=== PATIENT | female | born 1985 | race Caucasian/White ===

== ENCOUNTER 2020-10-10 11:11 | Emergency (ER) | payer SELFPAY ==
[2020-10-10] MEDS ORDERED: ONDANSETRON 4 MG/2 ML VIAL ONE (13:01)
[2020-10-10] MEDS ORDERED: MORPHINE 4 MG/ML SYR ONE (13:01)
[2020-10-10] MEDS ORDERED: NA CHLORIDE 0.9% 1,000 ML ONE (13:01)
[2020-10-10 13:05] LABS: Absolute Lymphocytes (CBC) 3.2 K/uL (0.7-4.9); Basophils % 1.4 % (0-1.3); Hematocrit 40.6 % (36.0-45.0); Lymphocytes % 22.7 % (15.3-44.8); MPV 9.2 fL (7.6-11.3); RBC Red Blood Cell Count 4.57 M/uL (3.86-4.86)
[2020-10-10 13:15] LABS: Urine Amorphous Sediment 2+ /HPF (NONE SEEN); Urine Bacteria 20-50 /HPF (<20); Urine RBC <5 /HPF (NONE SEEN)
[2020-10-10 13:16] LABS: Urine Blood NEGATIVE (NEG); Urine Glucose NEGATIVE (NEG); Urine Protein NEGATIVE (NEG); Urine pH 7.5 (5.0-7.0)
--- NOTE | 2020-10-10 13:20 | RAD REPORT ---
EXAM DESCRIPTION: CT - Stone Protocol - 10/10/2020 1:05 pm CLINICAL HISTORY: FLANK PAIN, right-sided, with a history of kidney stones COMPARISON: No comparisons TECHNIQUE: Axial 3 mm thick images were obtained without oral or IV contrast. The [id number]-vilr span s the entirety of the system including uppermost abdomen and lung bases. All CT scans are performed using dose optimization technique as appropriate and may include automated exposure control or mA/KV adjustment according to patient size. FINDINGS: No hydronephrosis is present and no obstructing ureteral calculi. No nonobstructing calcul i identified. No suspicious renal masses. Isodense masses and pyelonephritis are not excluded on a st one protocol CT scan. No significant adrenal finding. Urinary bladder is contracted limiting assessme nt. No bladder calculi seen. Uterus and ovaries show no suspicious findings. Imaged portions of the liver, spleen and pancreas show no suspicious findings on non-contrast imaging . Cholecystectomy clips are present. No biliary tree dilatation. No suspicious bowel findings. Appendix is normal. No mass or bulky lymphadenopathy. That extends into left inguinal canal region. No free air, free flu id or inflammatory stranding. No significant bony abnormality. IMPRESSION: No hydronephrosis, obstructing calculus or acute finding identifiable. Isodense masses and pyelonephritis are not excluded on stone protocol technique. No acute GI or PACU NURSE process seen.
[2020-10-10 13:22] LABS: ALT/SGPT 24 U/L (12-78); AST/SGOT 17 U/L (15-37); Albumin 3.3 g/dL (3.4-5.0); Alkaline Phosphatase 107 U/L (45-117); BUN Blood Urea Nitrogen 9 mg/dL (7-18); Bicarbonate 29 mmol/L (21-32); Bilirubin Direct < 0.1 mg/dL (0-0.2); Bilirubin Total 0.2 mg/dL (0.2-1.0); Glucose Level 71 mg/dL (74-106); Lipase 80 U/L (73-393); Potassium 4.2 mmol/L (3.5-5.1); Protein, Total 7.7 g/dL (6.4-8.2); Sodium Level 144 mmol/L (136-145)
[2020-10-10] MEDS ORDERED: CEFTRIAXONE/SWI 1gm 1 GM/10 ML SYR ONE (14:18)
[2020-10-10] MEDS ORDERED: KETOROLAC 30 MG/ML INJ ONE (14:18)
--- NOTE | 2020-10-10 14:21 | ER ---
Nurse's Notes [facility] Name: Queenie Benton Age: 35 yrs Sex: Female : 1985 Arrival Date: 10/10/2020 Time: 11:14 Bed 15 Private MD: Diagnosis: Urinary tract infection, site not specified Presentation: 10/10 11:26 Chief complaint: Patient states: right flank pain since yesterday , hx of kidney iw stones. Coronavirus screen: At this time, the client does not indicate any symptoms associated with coronavirus-19. Ebola Screen: Patient negative for fever greater than or equal to 101.5 degrees Fahrenheit, and additional compatible Ebola Virus Disease symptoms Patient denies exposure to infectious person. Patient denies travel to an Ebola-affected area in the 21 days before illness onset. No symptoms or risks identified at this time. Initial Sepsis Screen: Does the patient meet any 2 criteria? No. Patient's initial sepsis screen is negative. Does the patient have a suspected source of infection? No. Patient's initial sepsis screen is negative. Risk Assessment: Do you want to hurt yourself or someone else? Patient reports no desire to harm self or others. Onset of symptoms was October 09, 2020. 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 - Social history:: Smoking status: Patient reports the use of cigarette tobacco products, smokes one-half pack cigarettes per day. Screenin:30 Abuse screen: Denies threats or abuse. Denies injuries from another. Nutritional zb screening: No deficits noted. Tuberculosis screening: No symptoms or risk factors identified. Fall Risk None identified. Assessment: 13:30 General: Appears in no apparent distress. uncomfortable, Behavior is calm, cooperative, zb appropriate for age. Pain: Complains of pain in right flank, right lower quadrant and right femoral area Pain radiates to low back area Pain currently is 8 out of 10 on a pain scale. Quality of pain is described as burning, aching, throbbing, Pain began 2-3 days ago. Is continuous, intermittent, Aggravated by repositioning. Neuro: Level of Consciousness is awake, alert, obeys commands, Oriented to person, place, time, situation. Cardiovascular: Capillary refill < 3 seconds Patient's skin is warm and dry. Respiratory: Airway is patent Respiratory effort is even, unlabored, Respiratory pattern is regular, symmetrical. GI: Abdomen is flat. : Urine is clear, Reports burning with urination, urinary frequency. Derm: Skin is intact, is healthy with good turgor, Skin is dry, Skin is normal, Skin temperature is warm. Musculoskeletal: Range of motion: intact in all extremities. 13:36 General: Appears in no apparent distress. zb 14:42 Reassessment: Patient appears in no apparent distress at this time. Patient and/or zb family updated on plan of care and expected duration. Pain level reassessed. Patient is alert, oriented x 3, equal unlabored respirations, skin warm/dry/pink. d/c instructions given. up ad papo. gait steady and even . Vital Signs: 11:26 BP 115 / 81; Pulse 91; Resp 16 S; Temp 98.1; Pulse Ox 98% on R/A; Weight 90.72 kg; iw Height 5 ft. 2 in. (157.48 cm); Pain 7/10; 12:30 BP 101 / 72; Pulse 79; Resp 15; Pulse Ox 98% on R/A; zb 13:34 BP 102 / 72; Pulse 75; Resp 16; Pulse Ox 97% on R/A; zb 14:42 BP 104 / 70; Pulse 80; Resp 16; Pulse Ox 98% on R/A; zb 11:26 Body Mass Index 36.58 (90.72 kg, 157.48 cm) iw ED Course: 11:14 Patient arrived in ED. am2 11:19 Ritika Franco, DANIELLE is Primary Nurse. iw 11:27 Triage completed. iw 11:28 Arm band placed on. iw 11:52 Catarino Paulino NP is PHCP. pm1 11:52 Gilmar Crow MD is Attending Physician. pm1 12:13 Radiology exam delayed due to test not completed at this time. mw3 12:42 Radiology exam delayed due to test not completed at this time. mw3 12:55 Inserted saline lock: 20 gauge in right antecubital area, using aseptic technique. dh4 Blood collected. 13:00 Urine --Ancillary (enter results) Sent. zb 13:00 Urine Dipstick--Ancillary (enter results) Sent. zb 14:41 Patient has correct armband on for positive identification. Placed in gown. Bed in low zb position. Call light in reach. Side rails up X 1. Pulse ox on. NIBP on. 14:41 No provider procedures requiring assistance completed. IV discontinued, intact, zb bleeding controlled, No redness/swelling at site. Pressure dressing applied. Administered Medications: 12:59 Drug: NS 0.9% 1000 ml Route: IV; Rate: 1000 ml; Site: right antecubital; zb 14:40 Follow up: Response: No adverse reaction; IV Status: Completed infusion; IV Intake: zb 1000ml 12:59 Drug: morphine 4 mg Route: IVP; Site: right antecubital; zb 14:40 Follow up: Response: No adverse reaction; RASS: Alert and Calm (0) zb 12:59 Drug: Zofran (Ondansetron) 4 mg Route: IVP; Site: right antecubital; zb 14:40 Follow up: Response: No adverse reaction zb 14:20 Drug: TORadol - Ketorolac 15 mg Route: IVP; Site: right antecubital; zb 14:39 Follow up: Response: No adverse reaction; Marked relief of symptoms zb 14:21 Drug: Rocephin 1 grams Route: IV; Rate: calculated rate; Site: right antecubital; zb 14:39 Follow up: Response: No adverse reaction; IV Status: Completed infusion; IV Intake: 20mlzb 14:39 Drug: Cipro 500 mg Route: PO; zb 14:39 Follow up: Response: No adverse reaction; Medication administered at discharge. zb Intake: 14:39 IV: 20ml; Total: 20ml. zb 14:40 IV: 1000ml; Total: 1020ml. zb Outcome: 14:20 Discharge ordered by . pm1 14:41 Discharged to home ambulatory. zb 14:41 Condition: stable 14:41 Discharge instructions given to patient, Instructed on discharge instructions, follow up and referral plans. medication usage, Demonstrated understanding of instructions, follow-up care, medications, Prescriptions given X 2. 14:43 Patient left the ED. carlos Signatures: Ritika Franco RN Catarino King NP ELECTRONIC ENGINEERING DRAFTSPERSON pm1 Park Santiago am2 Ange Mejia mw3 Jun Scott dh4 Jonna Ash RN RN zb Corrections: (The following items were deleted from the chart) : 13:30 : carlos gonzalez 14: 13:30 EENT: No signs and/or symptoms were reported regarding the EENT system. carlos gonzalez
--- NOTE | 2020-10-10 14:21 | EDPHYS ---
Physician Documentation [facility] Name: Queenie Benton Age: 35 yrs Sex: Female : 1985 Arrival Date: 10/10/2020 Time: 11:14 Bed 15 Private MD: JOSTIN Physician Gilmar Crow HPI: 10/10 12:09 This 35 yrs old Female presents to ER via Ambulatory with complaints of Right pm1 Flank Pain. 12:09 The patient complains of pain in the right low back. The pain radiates to the right pm1 groin. Onset: The symptoms/episode began/occurred yesterday. Modifying factors: The symptoms are alleviated by nothing. the symptoms are aggravated by nothing. Associated signs and symptoms: Pertinent positives: nausea, burning with urination , Pertinent negatives: diarrhea, fever, vomiting. Severity of pain: in the emergency department the pain is actually worse. The patient has experienced a previous episode, many years ago, and the symptoms today are exactly the same, to prior kidney stone. The patient has not recently seen a physician. 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 - Social history:: Smoking status: Patient reports the use of cigarette tobacco products, smokes one-half pack cigarettes per day. ROS: 12:09 Constitutional: Negative for fever, chills, and weight loss, Cardiovascular: Negative pm1 for chest pain, palpitations, and edema, Respiratory: Negative for shortness of breath, cough, wheezing, and pleuritic chest pain. 12:09 Back: Negative for injury and pain. 12:09 Abdomen/GI: Positive for abdominal pain, nausea, of the right grion area, Negative for vomiting, diarrhea, constipation. Exam: 12:09 Constitutional: This is a well developed, well nourished patient who is awake, alert, pm1 and in no acute distress. Head/Face: Normocephalic, atraumatic. 12:09 Skin: Warm, dry with normal turgor. Normal color with no rashes, no lesions, and no evidence of cellulitis. MS/ Extremity: Pulses equal, no cyanosis. Neurovascular intact. Full, normal range of motion. 12:09 Cardiovascular: Exam negative for acute changes, Rate: normal, Rhythm: regular, Pulses: no pulse deficits are appreciated. 12:09 Respiratory: Exam negative for acute changes, respiratory distress, shortness of breath. 12:09 Abdomen/GI: Inspection: abdomen appears normal, Palpation: abdomen is soft and non-tender, in all quadrants. 12:09 Back: pain, that is mild, of the right low back. 12:09 Neuro: Exam negative for acute changes, Orientation: is normal, Mentation: is normal, Motor: is normal, moves all fours. Vital Signs: 11:26 BP 115 / 81; Pulse 91; Resp 16 S; Temp 98.1; Pulse Ox 98% on R/A; Weight 90.72 kg; iw Height 5 ft. 2 in. (157.48 cm); Pain 7/10; 12:30 BP 101 / 72; Pulse 79; Resp 15; Pulse Ox 98% on R/A; zb 13:34 BP 102 / 72; Pulse 75; Resp 16; Pulse Ox 97% on R/A; zb 14:42 BP 104 / 70; Pulse 80; Resp 16; Pulse Ox 98% on R/A; zb 11:26 Body Mass Index 36.58 (90.72 kg, 157.48 cm) iw MDM: 11:59 Patient medically screened. felix 13:50 Counseling: I had a detailed discussion with the patient and/or guardian regarding: the pm1 historical points, exam findings, and any diagnostic results supporting the discharge/admit diagnosis, lab results, radiology results, the need for outpatient follow up, to return to the emergency department if symptoms worsen or persist or if there are any questions or concerns that arise at home. 14:03 Data reviewed: vital signs. Data interpreted: Pulse oximetry: on room air is 97 %. pm1 Interpretation: normal. 10/10 12:07 Order name: Basic Metabolic Panel pm1 10/10 12:07 Order name: CBC with Diff pm1 10/10 12:07 Order name: Hepatic Function pm1 10/10 12:07 Order name: Lipase pm1 10/10 12:08 Order name: Urine Microscopic Only pm1 10/10 12:57 Order name: Urine Dipstick--Ancillary (enter results) eb 10/10 12:57 Order name: Urine --Ancillary (enter results) eb 10/10 13:13 Order name: CBC with Automated Diff; Complete Time: 13:15 EDMS 10/10 13:16 Order name: Urine Microscopic Only; Complete Time: 13:46 EDMS 10/10 13:16 Order name: Urine --Ancillary; Complete Time: 13:46 EDMS 10/10 13:16 Order name: Urine Dipstick-Ancillary; Complete Time: 13:46 EDMS 10/10 13:22 Order name: Basic Metabolic Panel; Complete Time: 13:46 EDMS 10/10 13:22 Order name: Liver (Hepatic) Function; Complete Time: 13:46 EDMS 10/10 13:22 Order name: Lipase; Complete Time: 13:46 EDMS 10/10 12:07 Order name: IV Saline Lock; Complete Time: 12:56 pm1 10/10 12:07 Order name: Labs collected and sent; Complete Time: 12:56 pm1 10/10 12:07 Order name: CT Stone Protocol pm1 10/10 12:08 Order name: Urine Dipstick-Ancillary (obtain specimen); Complete Time: 12:54 pm1 10/10 12:08 Order name: Urine Test (obtain specimen); Complete Time: 12:54 pm1 10/10 13:20 Order name: CT; Complete Time: 13:46 EDMS 10/10 13:53 Order name: Urine Culture EDMS Administered Medications: 12:59 Drug: NS 0.9% 1000 ml Route: IV; Rate: 1000 ml; Site: right antecubital; zb 14:40 Follow up: Response: No adverse reaction; IV Status: Completed infusion; IV Intake: zb 1000ml 12:59 Drug: morphine 4 mg Route: IVP; Site: right antecubital; zb 14:40 Follow up: Response: No adverse reaction; RASS: Alert and Calm (0) zb 12:59 Drug: Zofran (Ondansetron) 4 mg Route: IVP; Site: right antecubital; zb 14:40 Follow up: Response: No adverse reaction zb 14:20 Drug: TORadol - Ketorolac 15 mg Route: IVP; Site: right antecubital; zb 14:39 Follow up: Response: No adverse reaction; Marked relief of symptoms zb 14:21 Drug: Rocephin 1 grams Route: IV; Rate: calculated rate; Site: right antecubital; zb 14:39 Follow up: Response: No adverse reaction; IV Status: Completed infusion; IV Intake: 20mlzb 14:39 Drug: Cipro 500 mg Route: PO; zb 14:39 Follow up: Response: No adverse reaction; Medication administered at discharge. zb Disposition: 10/11 09:10 Co-signature as Attending Physician, Gilmar Crow MD I agree with the assessment and felix plan of care. Disposition: 10/10/20 14:20 Discharged to Home. Impression: Urinary tract infection, site not specified. - Condition is Stable. - Discharge Instructions: Urinary Tract Infection, Adult. - Prescriptions for Cipro 500 mg Oral Tablet - take 1 tablet by ORAL route every 12 hours for 10 days; 20 tablet. Tylenol- Codeine #3 300-30 mg Oral Tablet - take 2 tablets by ORAL route every 4-6 hours As needed; 20 tablet. - Medication Reconciliation Form, Thank You Letter, Antibiotic Education, Prescription Opioid Use form. - Follow up: Emergency Department; When: As needed; Reason: Worsening of condition. Follow up: Private Physician; When: 2 - 3 days; Reason: Recheck today's complaints, Continuance of care, Re-evaluation by your physician. - Problem is new. - Symptoms have improved. Signatures: Dispatcher [employer] Gilmar Falcon MD MD cha Williams, Irene, RN RN iw Marinas, Patrick, NP ETL CONSULTANT pm1 Jonna Ash RN RN zb Corrections: (The following items were deleted from the chart) 03 14:43 14:20 10/10/2020 14:20 Discharged to Home. Impression: Urinary tract infection, site zb not specified. Condition is Stable. Forms are Medication Reconciliation Form, Thank You Letter, Antibiotic Education, Prescription Opioid Use. Follow up: Emergency Department; When: As needed; Reason: Worsening of condition. Follow up: Private Physician; When: 2 - 3 days; Reason: Recheck today's complaints, Continuance of care, Re-evaluation by your physician. Problem is new. Symptoms have improved. pm1
[2020-10-10 14:48] VITALS: TEMP 98.1
[2020-10-10] MEDS ORDERED: CIPROFLOXACIN HCL 500 MG TAB ONE (14:49)
[2020-10-10 14:51] VITALS: BP 104/70; O2SAT 98
== END 2020-10-10 14:43 | disposition home or self-care (01) ==
LOC: ER 11:11
DX: N39.0 Urinary tract infection, site not specified (principal); F17.210 Nicotine dependence, cigarettes, uncomplicated
CPT/HCPCS: 36415; 74176; 76377; 80048; 80076; 81003; 81015; 81025; 83690; 85025; 87086; 87088; 96361; 96365; 96375; 99284; J0696; J2405; J7030